=== PATIENT | male | born 1970 | race Caucasian/White ===

== ENCOUNTER 2020-08-16 07:02 | Day surgery (SDC) | payer OTHER ==
[~2020-08-16] VITALS: Ht 188 cm; Wt 113.0 kg
[2020-08-16 07:32] VITALS: BP 18/87
[2020-08-16] MEDS ORDERED: MELO15TA24 PO (07:32)
[2020-08-16] MEDS ORDERED: CELE100C PO (07:32)
[2020-08-16] MEDS ORDERED: DOXY100C2 PO (07:32)
[2020-08-16] MEDS ORDERED: EMPA1TAB PO (07:32)
[2020-08-16] MEDS ORDERED: CHLORHEXIDINE 15 ML UDC MM STA (07:34)
[2020-08-16] MEDS ORDERED: CHLORHEXIDINE 15 ML UDC ONE (07:38)
[2020-08-16] MEDS ORDERED: LACTATED RINGERS 1,000 ML IV SCH (08:00)
[2020-08-16 08:01] VITALS: BP 138/87
[2020-08-16] MEDS ORDERED: MIDAZOLAM 1 MG/ML, 2ML ONE (09:27)
[2020-08-16] MEDS ORDERED: FENTANYL PF 250 MCG/5ML ONE (09:28)
[2020-08-16] MEDS ORDERED: BUPIVACAINE/PF 0.25% ONE (10:32)
[2020-08-16] MEDS ORDERED: DEXAMETHASONE 4 MG/ML, 1ML ONE (10:52)
[2020-08-16] MEDS ORDERED: CEFAZOLIN 1,000 MG ONE ×2 (10:52→12:55)
[2020-08-16] MEDS ORDERED: BUPIVACAINE/PF 0.25% INFIL ONE (11:12)
[2020-08-16] MEDS ORDERED: ONDANSETRON 2MG/ML, 2ML ONE (12:55)
[2020-08-16] MEDS ORDERED: PROPOFOL 10 MG/ML, 20ML ONE (12:55)
[2020-08-16] MEDS ORDERED: ACETAMINOPHEN 650 MG/20.3 ML UDC ONE (12:58)
[2020-08-16] MEDS ORDERED: ACETAMINOPHEN 325 MG TABLET PO PRN (13:00)
[2020-08-16] MEDS ORDERED: OXYcodone 5 MG/5 ML ORAL.SOL UDC PO PRN (13:00)
[2020-08-16] MEDS ORDERED: HYDROmorphone 1 MG/ML, 1ML INJ IVPush PRN (13:00)
[2020-08-16] MEDS ORDERED: PROMETHAZINE 25 MG SUPP PR PRN (13:00)
[2020-08-16] MEDS ORDERED: PROMETHAZINE 25 MG/ML, 1ML IVPush PRN (13:00)
[2020-08-16] MEDS ORDERED: ONDANSETRON 2MG/ML, 2ML IVPush PRN (13:00)
[2020-08-16] MEDS ORDERED: FENTANYL PF 100 MCG/2ML IV PRN (13:00)
== END 2020-08-16 14:35 | disposition home or self-care (01) ==
LOC: OUT 07:02
PROVIDERS: ATTEND Urology
DX: N45.1 Epididymitis (principal); E11.9 Type 2 diabetes mellitus without complications; Z79.899 Other long term (current) drug therapy; Z80.0 Family history of malignant neoplasm of digestive organs; Z72.89 Other problems related to lifestyle; Z98.890 Other specified postprocedural states
CPT/HCPCS: 54861; 82962; 88305; J0690; J1100; J2250; J2405; J2704; J3010